=== PATIENT | male | born 1955 | race Caucasian/White ===

== ENCOUNTER 2021-11-05 08:11 | Emergency (ER) | payer OTHER ==
[2021-11-05 08:21] VITALS: BP 158/89; PULSE 94
--- NOTE | 2021-11-05 08:53 | EDM.PDOC ---
ED HPI GENERAL MEDICAL PROBLEM - General Chief Complaint: General Stated Complaint: RT EYE BLOOD IN IT Time Seen by Provider: 11/05/21 08:49 Source of Information: Reports: Patient History Limitations: Reports: No Limitations - History of Present Illness INITIAL COMMENTS - FREE TEXT/NARRATIVE: Segundo is a pleasant 66 yo male who presents to the Ed with c/o "blood in his eye." He reports upon awakening this morning he had blood in his right eye. He denies any injury to eye. Denies any vision changes, pain, dizziness, lightheaded, CP, SOB. He does report that the last month or so he has been coughing so was coughing some last night. He does not offer any additional complaints. Onset: Today, Sudden Associated Symptoms: Reports: No Other Symptoms - Related Data Allergies Allergy/AdvReac Type Severity Reaction Status Date / Time Penicillins Allergy Rash Verified 04/29/21 01:11 MDT Home Meds: Home Meds Multivitamins/Minerals [Vitamins and Minerals] 1 each PO DAILY 04/03/14 [History] cycloSPORINE [Restasis] 1 each OP DAILY 10/14/16 [History] metFORMIN [Glucophage] 500 mg PO BID 07/01/19 [History] Enalapril [Vasotec] 10 mg PO DAILY 11/05/21 [History] Metoprolol Succinate 25 mg PO DAILY 11/05/21 [History] Past Medical History - Past Health History Medical/Surgical History: Denies Medical/Surgical History HEENT History: Reports: Impaired Vision Cardiovascular History: Reports: Hypertension Genitourinary History: Reports: BPH, Renal Calculus Neurological History: Reports: Neuropathy, Peripheral Endocrine/Metabolic History: Reports: Diabetes, Type II Oncologic (Cancer) History: Reports: Other (See Below) Other Oncologic History: skin spots removed for preventative treatment Dermatologic History: Reports: Eczema - Infectious Disease History Infectious Disease History: Reports: Chicken Pox, Measles, Mumps - Past Surgical History HEENT Surgical History: Reports: Oral Surgery GI Surgical History: Reports: Hernia, Inguinal Male Surgical History: Reports: Vasectomy Social & Family History - Family History Family Medical History: No Pertinent Family History - Tobacco Use Tobacco Use Status *Q: Never Tobacco User Second Hand Smoke Exposure: No - Caffeine Use Caffeine Use: Reports: None - Recreational Drug Use Recreational Drug Use: No - Living Situation & Occupation Living situation: Reports: , with Spouse 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 ED EXAM, GENERAL - Physical Exam Exam: See Below Exam Limited By: No Limitations General Appearance: Alert, WD/WN, No Apparent Distress Eye Exam: Right Eye: Other (subconjunctival hemorrhage medial aspect of eye), Bilateral Eye: EOMI, PERRL Neck: Normal Inspection, Supple, Non-Tender, Full Range of Motion Respiratory/Chest: No Respiratory Distress, Lungs Clear, Normal Breath Sounds, No Accessory Muscle Use, Chest Non-Tender Cardiovascular: Normal Peripheral Pulses, Regular Rate, Rhythm, No Edema, No Gallop, No JVD, No Murmur, No Rub Course - Vital Signs Last Recorded V/S: Last Vital Signs Temp 97.1 F 11/05/21 08:20 Pulse 94 11/05/21 08:20 Resp 18 11/05/21 08:20 BP 158/89 H 11/05/21 08:20 Pulse Ox 98 11/05/21 08:20 Departure - Departure Time of Disposition: 08:50 Disposition: Home, Self-Care 01 Condition: Good Clinical Impression: Subconjunctival hemorrhage of right eye - Discharge Information *PRESCRIPTION DRUG MONITORING PROGRAM REVIEWED*: Not Applicable *COPY OF PRESCRIPTION DRUG MONITORING REPORT IN PATIENT OBIE: Not Applicable Instructions: Subconjunctival Hemorrhage Referrals: PCP,Not In Area [Primary Care Provider] - Forms: ED Department Discharge Additional Instructions: - Blood should resorb with time - Follow up with pattern technician as needed Sepsis Event Note (ED) - Evaluation Sepsis Screening Result: No Definite Risk - Focused Exam Vital Signs: Vital Signs Temp Pulse Resp BP Pulse Ox 11/05/21 08:20 97.1 F 94 18 158/89 H 98 - Problem List & Annotations (1) Subconjunctival hemorrhage of right eye SNOMED Code(s): 15284038 Code(s): H11.31 - CONJUNCTIVAL HEMORRHAGE, RIGHT EYE Status: Acute - Assessment/Plan Assessment:: Subconjunctival hemorrhage of right eye Plan: As above. Discharged home.
== END 2021-11-05 08:57 | disposition home or self-care (01) ==
LOC: CC.ED 08:11
DX: H11.31 Conjunctival hemorrhage, right eye (principal); I10 Essential (primary) hypertension; E11.9 Type 2 diabetes mellitus without complications; Z88.0 Allergy status to penicillin; Z79.84 Long term (current) use of oral hypoglycemic drugs
CPT/HCPCS: 99283